=== PATIENT | female | born 1975 | race Caucasian/White ===

== ENCOUNTER → 2024-01-20 | Outpatient (CLI) | payer OTHER ==
--- NOTE | 2024-01-20 16:58 | PE ---
EXAMINATION TYPE: PET CT fusion skull to thigh DATE OF EXAM: 01/20/2024 CLINICAL INDICATION:Female, 48 years old with history of C50.111 breast ca; TECHNIQUE: Following the intravenous administration of 12.54 mCi of F-18 FDG, whole body images are performed from the skull base to the midthigh. Images are reviewed on the computer in the coronal, axial, and sagittal planes. Reconstructed rotating images are created on independent workstation and reviewed on the computer. A non-contrast CT is performed in conjunction with the PET scan. Glucose level 113 mg/dL CT DLP: 535.68 mGycm, Automated exposure control for dose reduction was used. COMPARISON: CT None, PET/CT None, MRI: None FINDINGS: Mediastinal SUV mean is 2.26. Hepatic parenchyma SUV mean is 2.58. SKULL BASE AND NECK: No suspicious radiotracer activity. CHEST, MEDIASTINUM, AND HILAR REGION: Right breast 1.1 cm round lesion with suspected biopsy clip. De monstrates a maximum SUV of 2.0 which is at background levels. No other suspicious radiotracer activi ty identified. ABDOMEN AND PELVIS: No suspicious radiotracer activity. MUSCULOSKELETAL STRUCTURES: No suspicious radiotracer activity. OTHER CT: Hepatic steatosis. Tiny hiatal hernia. IMPRESSION: Right breast 1.1 cm round lesion with suspected biopsy clip. Favored to correspond to reported breast cancer however no prior imaging is available. Demonstrates a maximum SUV of 2.0 which is at backgrou nd levels. No other suspicious radiotracer activity identified.
== END | disposition home or self-care (01) ==
LOC: RADPETMAIN 07:28
PROVIDERS: ATTEND Internal Medicine
DX: C50.111 Malignant neoplasm of central portion of right female breast (principal); K76.0 Fatty (change of) liver, not elsewhere classified; K44.9 Diaphragmatic hernia without obstruction or gangrene
CPT/HCPCS: 78815; A9552